=== PATIENT | female | born 1990 | race Caucasian/White ===

== ENCOUNTER 2017-09-21 17:44 | Emergency (ER) | payer OTHER ==
[~2017-09-21] VITALS: Ht 170.2 cm; Wt 121.6 kg
[2017-09-21] MEDS ORDERED: ROBAXIN-750750 MG PO (18:01)
[2017-09-21] MEDS ORDERED: HYDROXYZINE HCL50 MG PO (18:01)
[2017-09-21] MEDS ORDERED: WELLBUTRIN SR150 MG PO (18:01)
[2017-09-21] MEDS ORDERED: VENTOLIN HFA18 GM INH (18:02)
== END 2017-09-21 18:05 | disposition home or self-care (01) ==
LOC: ED 17:44
DX: K08.89 Other specified disorders of teeth and supporting structures (principal)

== ENCOUNTER 2017-10-05 13:49 | Emergency (ER) | payer OTHER ==
[~2017-10-05] VITALS: Ht 170.2 cm; Wt 121.6 kg
[~2017-10-05 13:49] MED LIST: HYDROXYZINE HCL50 MG PO; ROBAXIN-750750 MG PO; VENTOLIN HFA18 GM INH; WELLBUTRIN SR150 MG PO
== END 2017-10-05 14:10 | disposition home or self-care (01) ==
LOC: ED 13:49
DX: M54.5 Low back pain (principal)

== ENCOUNTER 2017-10-12 21:24 | Emergency (ER) | payer OTHER | END 2017-10-12 22:27 | disposition left against medical advice (07) | LOC: ED 21:24 | DX: Z53.21 Procedure and treatment not carried out due to patient leaving prior to being seen by health care provider (principal) ==

== ENCOUNTER 2017-10-24 14:10 | Emergency (ER) | payer OTHER ==
[~2017-10-24] VITALS: Ht 170.2 cm; Wt 121.6 kg
--- OUTSIDE RECORDS SUMMARY | 2017-10-24 14:12 | XMS ---
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 CRITERIA MET - [facility] - 2 Visits in 30 Days CARE PROVIDERS SNEHAL KEN Student in an Organized Health Care 10/06/2017-Current Education/Training Program PHONE: Unknown Lori has no Care Guidelines for this patient. Care History Medical/Surgical 10/13/2017 [facility] - Patient cancelled apt to establish with PCP Dr Ken on 10/10/2017. - Please refer patient to establish with provider if seen in the ED. - Refer all non emergent medical needs to walk in clinic, patient needs to establish with a provider. 10/06/2017 [facility] - PATIENT HAS AN APT WITH DR KEN AT [facility] TO BECOME ESTABLISHED ON 10/10/17. - Patient is currently established with [facility]. If patient is seen in the ED during business hours. Please contact CHWs at [facility]. Care Recommendation: This patient has had 5 or more Emergency Department visits in the last 12 months.\T\nbsp; Patient requires education on the scope and purpose of the ED as an acute care provider not a Primary Care Provider and should not be utilized for chronic conditions.\T\nbsp; These are guidelines and the provider should exercise clinical judgment when providing care. Joanne VISIT COUNT (12 MO.) 4 AJ Mendoza TOTAL 4 NOTE: Visits indicate total known visits. ED/UCC VISIT TRACKING (12 MO.) 10/24/2017 14:11 [facility] [place] TYPE: Emergency COMPLAINT: - SEIZURES 10/12/2017 21:25 [facility] TYPE: Emergency COMPLAINT: - BACK PAIN-NON INJURY DIAGNOSES: - Dorsalgia, unspecified - Procedure and treatment not carried out due to patient leaving prior to being seen by health care provider 10/05/2017 13:49 [facility] TYPE: Emergency COMPLAINT: - LOWER BACK PAIN DIAGNOSES: - Low back pain 09/21/2017 17:45 [facility] TYPE: Emergency COMPLAINT: - DENTEL PAIN DIAGNOSES: - Other specified disorders of teeth and supporting structures - OTHER SPECIFIED DISORDERS OF TEETH AND SUPPORTING STRUCTURES INPATIENT VISIT TRACKING (12 MO.) No inpatient visits to display in this time frame [email or web address]
== END 2017-10-24 15:34 | disposition home or self-care (01) ==
LOC: ED 14:10
DX: O99.351 Diseases of the nervous system complicating pregnancy, first trimester (principal); G40.509 Epileptic seizures related to external causes, not intractable, without status epilepticus; Z87.891 Personal history of nicotine dependence; Z91.040 Latex allergy status; Z88.2 Allergy status to sulfonamides; Z88.1 Allergy status to other antibiotic agents; Z79.899 Other long term (current) drug therapy; Z3A.01 Less than 8 weeks gestation of pregnancy
CPT/HCPCS: 84703; 99284

== ENCOUNTER 2017-10-28 16:48 | Emergency (ER) | payer OTHER ==
[~2017-10-28] VITALS: Ht 170.2 cm; Wt 121.6 kg
--- OUTSIDE RECORDS SUMMARY | 2017-10-28 16:50 | XMS ---
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 CRITERIA MET - [facility] - 2 Visits in 30 Days CARE PROVIDERS SNEHAL KEN Student in an Organized Health Care 10/06/2017-Current Education/Training Program PHONE: Unknown Lori has no Care Guidelines for this patient. Care History Medical/Surgical 10/24/2017 [facility] -Rescheduled new patient appointment with Dr Ken for MondayNov 13 at 3: 30pm per patient request 10/13/2017 [facility] - Patient cancelled apt to establish with PCP Dr Ken on 10/10/2017. - Please refer patient to establish with provider if seen in the ED. - Refer all non emergent medical needs to walk in clinic, patient needs to establish with a provider. 10/06/2017 [facility] - PATIENT HAS AN APT WITH DR KEN AT [facility] TO BECOME ESTABLISHED ON 10/10/17. - Patient is currently established with [facility]. If patient is seen in the ED during business hours. Please contact CHWs at [facility]. Care Recommendation: This patient has had 5 or more Emergency Department visits in the last 12 months.\T\nbsp; Patient requires education on the scope and purpose of the ED as an acute care provider not a Primary Care Provider and should not be utilized for chronic conditions.\T\nbsp; These are guidelines and the provider should exercise clinical judgment when providing care. EUmairD. VISIT COUNT (12 MO.) 5 AJ Mendoza TOTAL 5 NOTE: Visits indicate total known visits. 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 - Diseases of the nervous system complicating , first trimester - Epileptic seizures related to external causes, not intractable, without status epilepticus 10/12/2017 21:25 [facility] TYPE: Emergency COMPLAINT: - BACK PAIN-NON INJURY DIAGNOSES: - Dorsalgia, unspecified - Procedure and treatment not carried out due to patient leaving prior to being seen by health care provider 10/05/2017 13:49 [facility] TYPE: Emergency COMPLAINT: - LOWER BACK PAIN DIAGNOSES: - Low back pain 09/21/2017 17:45 [facility] TYPE: Emergency COMPLAINT: - DENTEL PAIN DIAGNOSES: - Other specified disorders of teeth and supporting structures - OTHER SPECIFIED DISORDERS OF TEETH AND SUPPORTING STRUCTURES INPATIENT VISIT TRACKING (12 MO.) No inpatient visits to display in this time frame [email or web address]
[2017-10-28] MEDS ORDERED: FLOVENT DISKUS50 MCG INH (17:07)
[2017-10-28] MEDS ORDERED: PREDNISONE20 MG PO (18:48)
[2017-10-28] MEDS ORDERED: FLOVENT HFA12 G1 INH (18:48)
[2017-10-28] MEDS ORDERED: VENTOLIN HFA18 GM INH (18:48)
== END 2017-10-28 19:05 | disposition home or self-care (01) ==
LOC: ED 16:48
DX: J45.909 Unspecified asthma, uncomplicated (principal); Z87.891 Personal history of nicotine dependence; Z91.040 Latex allergy status; Z88.2 Allergy status to sulfonamides; Z88.1 Allergy status to other antibiotic agents; Z79.899 Other long term (current) drug therapy
CPT/HCPCS: 99284; J7512